=== PATIENT | male | born 1990 | race Caucasian/White ===

== ENCOUNTER 2019-06-20 13:58 | Emergency (ER) | payer OTHER ==
[2019-06-20 14:10] VITALS: BP 131/85; PULSE 68; TEMP 98.5; BMI 25.7
--- NOTE | 2019-06-20 14:15 | PDOC ---
Rapid Medical Evaluation Chief Complaint: Lightheaded Time Seen by Provider: 06/20/19 14:13 Medical Evaluation: Allergies Allergy/AdvReac Type Severity Reaction Status Date / Time No Known Allergies Allergy Verified 06/20/19 14:10 Vital Signs Temp Pulse Resp BP Pulse Ox 98.5 F 68 18 131/85 98 06/20/19 14:07 06/20/19 14:07 06/20/19 14:07 06/20/19 14:07 06/20/19 14:07 06/20/19 14:13 This is a 28-year-old male with a stated history of anxiety presenting with three days of worsening anxiety, subjective weakness, lightheadedness, and blood in stool. Alert, oriented, no distress. No abdominal tenderness. I have ordered the following: basic labs. Patient to proceed to the ED for further evaluation. Discharge Disposition - Diagnosis Lightheaded - Discharge Dispostion Condition at time of disposition: Stable - Referrals - Patient Instructions - Post Discharge Activity
[2019-06-20 14:57] LABS: BASO % 0.3 % (0-2.0); EOS % 0.1 % (0-4.5); HEMATOCRIT 46.4 % (35.4-49); HEMOGLOBIN 16.1 GM/dL (11.7-16.9); LYMPH % 11.7 % (8-40); MCH 30.5 pg (25.7-33.7); MCHC 34.7 g/dl (32.0-35.9); MEAN CELL VOLUME 87.9 fl (80-96); MEAN PLT VOLUME 8.4 fl (7.5-11.1); MONO % 5.7 % (3.8-10.2); NEUT % 82.2 % (42.8-82.8); PLATELET COUNT 192 K/MM3 (134-434); RBC 5.28 M/mm3 (4.00-5.60); RDW 13.4 % (11.9-15.9); WHITE BLOOD COUNT 10.7 K/mm3 (4.0-10.0)
[2019-06-20] MEDS ORDERED: SODIUM CHLORIDE 1,000 ML IV STA (15:00)
[2019-06-20 15:02] LABS: URINE APPEARANCE CLEAR; URINE BILIRUBIN NEGATIVE (NEGATIVE); URINE COLOR YELLOW; URINE GLUCOSE (UA) NEGATIVE (NEGATIVE); URINE KETONE NEGATIVE (NEGATIVE); URINE LEUK ESTERASE NEGATIVE (NEGATIVE); URINE NITRITE NEGATIVE (NEGATIVE); URINE PROTEIN NEGATIVE (NEGATIVE); URINE UROBILINOGEN 0.2 mg/dL (0.2-1.0)
[2019-06-20 15:22] LABS: ALBUMIN 4.2 g/dl (3.4-5.0); BILIRUBIN,TOTAL 0.6 mg/dL (0.2-1); BLOOD UREA NITROGEN 12.8 mg/dL (7-18); CALCIUM 9.2 mg/dL (8.5-10.1); CREATININE 0.9 mg/dL (0.55-1.3); TOT PROT 7.2 g/dl (6.4-8.2)
--- NOTE | 2019-06-20 15:22 | PDOC ---
History of Present Illness - General Chief Complaint: Lightheaded Stated Complaint: WEAKNESS/dizziness Time Seen by Provider: 06/20/19 14:13 History Source: Patient Exam Limitations: Clinical Condition - History of Present Illness Initial Comments: 06/20/19 15:17 Patient with no medical history of anxiety not on meds present with complaint of dizziness, lightheadedness, nausea since yesterday which is worsening today. Patient also reported having blood and tissue after having bowel movement. Denies active rectal bleeding. Denies chest pain, vomiting, headache, reported intermittent history of constipation. Denies any other symptoms. Denies sick contacts or recent travel Is this a multiple visit Asthma Patient?: No Timing/Duration: 24 hours Past History - Past Medical History Allergies/Adverse Reactions: Allergies Allergy/AdvReac Type Severity Reaction Status Date / Time No Known Allergies Allergy Verified 06/20/19 14:10 Home Medications: Ambulatory Orders hydrOXYzine PAMOATE [Vistaril -] 25 mg PO Q8H PRN #12 capsule 06/20/19 COPD: No - Immunization History Immunization Up to Date: No - Psycho Social/Smoking Cessation Hx Smoking History: Never smoked Have you smoked in the past 12 months: No Information on smoking cessation initiated: No Hx Alcohol Use: No Drug/Substance Use Hx: No Review of Systems - Review of Systems Able to Perform ROS?: Yes Is the patient limited [place]ish proficient: No Constitutional: No: Diaphoresis, Fever, Malaise HEENTM: Yes: Symptoms Reported, See HPI, Blurred Vision, Recent change in vision. No: Eye Pain, Tearing, Double Vision, Cataracts, Ear Pain, Ocular Prothesis, Ear Discharge, Nose Pain, Nose Congestion, Tinnitus, Nose Bleeding, Hearing Loss, Throat Pain, Throat Swelling, Mouth Pain, Dental Problems, Difficulty Swallowing, Mouth Swelling, Other Respiratory: No: Symptoms reported, See HPI, Cough, Orthopnea, Shortness of Breath, SOB with Exertion, SOB at Rest, Stridor, Wheezing, Productive cough, Hemoptysis, Other Cardiac (ROS): Yes: Symptoms Reported, See HPI, Lightheadedness. No: Chest Pain , Edema, Irregular Heart Rate, Palpitations, Syncope, Chest Tightness, Other ABD/GI: Yes: Symptoms Reported, See HPI, Constipated, Rectal Bleeding. No: Abd. Pain w/ defecation, Blood Streaked Bowels, Diarrhea, Difficulty Swallowing , Nausea, Poor Appetite, Vomiting, Indigestion, Abdominal cramping : No: Burning, Discharge, Frequency, Urgency Musculoskeletal: No: Symptoms Reported Neurological: No: Headache, Paresthesia, Seizure, Weakness, Unsteady Gait, Ataxia, Dizziness All Other Systems: Reviewed and Negative *Physical Exam - Vital Signs Last Vital Signs Temp Pulse Resp BP Pulse Ox 98.5 F 68 18 131/85 98 06/20/19 14:07 06/20/19 14:07 06/20/19 14:07 06/20/19 14:07 06/20/19 14:07 - Physical Exam Comments: 06/20/19 15:22 GENERAL: Well developed, well nourished. Awake and alert. No acute distress. HEENT: Normocephalic, atraumatic. PERRLA, EOMI. No conjunctival pallor. Sclera are non- icteric. Moist mucous membranes. Oropharynx is clear. NECK: Supple. Full ROM. No JVD. Carotid pulses 2+ and symmetric, without bruits. No thyromegaly. No lymphadenopathy. CARDIOVASCULAR: Regular rate and rhythm. No murmurs, rubs, or gallops. Distal pulses are 2+ and symmetric. PULMONARY: No evidence of respiratory distress. Lungs clear to auscultation bilaterally. No wheezing, rales or rhonchi. ABDOMINAL: Soft. Non-tender. Non-distended. No rebound or guarding. No organomegaly. Normoactive bowel sounds. MUSCULOSKELETAL Normal range of motion at all joints. EXTREMITIES: No cyanosis. No clubbing. No edema. SKIN: Warm and dry. Normal capillary refill. No rashes. No jaundice. NEUROLOGICAL: Alert, awake, appropriate. Cranial nerves 2-12 intact. No motor deficits in the in face, upper extremities and lower extremities. Normal speech. Toes are down-going bilaterally. Gait is normal without ataxia. PSYCHIATRIC: Cooperative. Good eye contact. Appropriate mood and affect. General Appearance: Yes: Nourished, Appropriately Dressed. No: Apparent Distress ED Treatment Course - LABORATORY CBC & Chemistry Diagram: 06/20/19 14:38 06/20/19 14:38 - ADDITIONAL ORDERS Additional order review: Laboratory Results 06/20/19 14:38 Urine Color Yellow Urine Appearance Clear Urine pH 7.0 Ur Specific [place] 1.006 L Urine Protein Negative Urine Glucose (UA) Negative Urine Ketones Negative Urine Blood Negative Urine Nitrite Negative Urine Bilirubin Negative Urine Urobilinogen 0.2 Ur Leukocyte Esterase Negative 06/20/19 14:38 RBC 5.28 MCV 87.9 MCHC 34.7 RDW 13.4 MPV 8.4 Neutrophils % 82.2 Lymphocytes % 11.7 Monocytes % 5.7 Eosinophils % 0.1 Basophils % 0.3 Medical Decision Making - Medical Decision Making 06/20/19 15:19 Patient with no medical history of anxiety not on meds present with complaint of dizziness, lightheadedness, nausea since yesterday which is worsening today. Patient also reported having blood and tissue after having bowel movement. Denies active rectal bleeding. Denies chest pain, vomiting, headache, reported intermittent history of constipation. Denies any other symptoms. Denies sick contacts or recent travel Clinical exam unremarkable with normal neuro exam. patient reported starting to feel better after drinking Gatorade. Symptoms likely dehydration versus anxiety versus less likely cardiogenic symptoms. EKG, CBC, CMP, PT/PTT labs ordered. IV hydration with normal saline 1 L ordered. occult stool sample sent to r/o rectal bleed. Treat based on lab results 06/20/19 15:45 EKG shows normal sinus rhythm. CBC CMP PT and PTT lab unremarkable urine toxicology shows positive marijuana with patient admits has been smoking marijuana. Patient is symptomatic now. Symptoms likely dehydration and anxiety. Patient is stable for discharge with Vistaril when necessary for anxiety with advised to increase fluid intake and follow up with PCP Discharge - Discharge Information Problems reviewed: Yes Clinical Impression/Diagnosis: Lightheaded, Anxiety, Dehydration Condition: Stable Disposition: HOME - Admission No - Additional Discharge Information Prescriptions: hydrOXYzine PAMOATE [Vistaril -] 25 mg PO Q8H PRN #12 capsule PRN Reason: Anxiety - Follow up/Referral Referrals: Earl Bhat MD [Primary Care Provider] - - Patient Discharge Instructions Patient Printed Discharge Instructions: Anxiety Disorders, DI for Dehydration - - Adult Additional Instructions: Your labs are normal . Your rectal exam is normal and does not show rectal bleed. Your symptoms is likely caused by dehydration and anxiety. Take prescribed medication as needed for anxiety. Increase fluid intake. Follow-up with your PCP - Post Discharge Activity Work/Back to School Note: Back to Work
[2019-06-20 15:23] LABS: COCAINE, UR NEGATIVE ng/ml (CUTOFF=300); INR 1.08 (0.83-1.09); METHADONE, UR NEGATIVE ng/ml (CUTOFF=300); OPIATES, URI NEGATIVE ng/ml (CUTOFF=300); PHENCYCLIDINE,URINE NEGATIVE ng/ml (CUTOFF=25); PROTHROMBIN TIME (PATIENT) 12.7 SEC (9.7-13.0); URINE AMPHETAMINES NEGATIVE ng/ml (CUTOFF=500); URINE BARBITURATES NEGATIVE ng/ml (CUTOFF=200); URINE BENZODIAZEPINES NEGATIVE ng/ml (CUTOFF=200)
[2019-06-20 15:26] LABS: ACTIVATED PTT 34.5 SECONDS (25.2-36.5)
--- NOTE | 2019-06-22 16:57 | EKG ---
Test Reason : Blood Pressure : / mmHG Vent. Rate : 052 BPM Atrial Rate : 052 BPM P-R Int : 124 ms QRS Dur : 086 ms QT Int : 390 ms P-R-T Axes : 033 067 046 degrees QTc Int : 362 ms SINUS BRADYCARDIA EARLY REPOLARIZATION OTHERWISE NORMAL ECG NO PREVIOUS ECGS AVAILABLE Confirmed by FLORA AL MD ([id number]) on 06/22/2019 4:56:50 PM Referred By: Confirmed By:FLORA AL MD
== END 2019-06-20 15:06 | disposition home or self-care (01) ==
LOC: JER 13:58
PROC: 3E0337Z Introduction of Electrolytic and Water Balance Substance into Peripheral Vein, Percutaneous Approach (ICD-10-PCS; principal; 2019-06-20)
DX: E86.0 Dehydration (principal); F41.9 Anxiety disorder, unspecified; R42 Dizziness and giddiness
CPT/HCPCS: 36415; 80053; 80307; 81003; 82272; 85025; 85610; 85730; 93005; 93010; 96360; 99282-25; J7030

== ENCOUNTER 2019-06-22 14:43 | Emergency (ER) | payer OTHER ==
[2019-06-22 14:50] VITALS: BP 142/70; PULSE 61; TEMP 97.6; BMI 25.7
[2019-06-22] MEDS ORDERED: hydrOXYzine PAMOATE 25 MG CAPSULE (FP) PO ONE (16:17)
[2019-06-22] MEDS ORDERED: SODIUM CHLORIDE 1,000 ML IV STA (16:17)
--- NOTE | 2019-06-22 16:18 | PDOC ---
History of Present Illness - General Chief Complaint: Weakness Stated Complaint: WEAK Time Seen by Provider: 06/22/19 15:38 History Source: Patient Exam Limitations: No Limitations Past History - Travel Traveled outside of the country in the last 30 days: No Close contact w/someone who was outside of country & ill: No - Past Medical History Allergies/Adverse Reactions: Allergies Allergy/AdvReac Type Severity Reaction Status Date / Time No Known Allergies Allergy Verified 06/22/19 14:49 Home Medications: Ambulatory Orders hydrOXYzine PAMOATE [Vistaril -] 25 mg PO Q8H PRN #12 capsule 06/20/19 COPD: No - Immunization History Immunization Up to Date: No - Psycho Social/Smoking Cessation Hx Smoking History: Current every day smoker Have you smoked in the past 12 months: No Information on smoking cessation initiated: No Hx Alcohol Use: No Drug/Substance Use Hx: No Review of Systems - Review of Systems Able to Perform ROS?: Yes Comments:: 06/22/19 17:45 CONSTITUTIONAL: Absent: fever, chills, diaphoresis, generalized weakness, malaise, loss of appetite HEENT: Absent: rhinorrhea, nasal congestion, throat pain, throat swelling, difficulty swallowing, mouth swelling, ear pain, eye pain, visual Changes CARDIOVASCULAR: Absent: chest pain, loss of consciousness, palpitations, irregular heart rate, peripheral edema RESPIRATORY: Absent: cough, shortness of breath, dyspnea with exertion, orthopnea, wheezing, stridor, hemoptysis GASTROINTESTINAL: Absent: abdominal pain, abdominal distension, nausea, vomiting, diarrhea, constipation, melena, hematochezia GENITOURINARY: Absent: dysuria, frequency, urgency, hesitancy, hematuria, flank pain, genital pain MUSCULOSKELETAL: Absent: myalgia, arthralgia, joint swelling SKIN: Absent: rash, itching, pallor HEMATOLOGIC/IMMUNOLOGIC: Absent: easy bleeding, easy bruising, lymphadenopathy, frequent infections ENDOCRINE: Absent: unexplained weight gain, unexplained weight loss, heat intolerance, cold intolerance NEUROLOGIC: Present: numbness and tingling to both feet Absent: headache, focal weakness or paresthesias, dizziness, unsteady gait, seizure, mental status changes, bladder or bowel incontinence PSYCHIATRIC: Absent: anxiety, depression, suicidal or homicidal ideation, hallucinations. Is the patient limited [place] proficient: No *Physical Exam - Vital Signs Last Vital Signs Temp Pulse Resp BP Pulse Ox 97.6 F 61 18 142/70 99 06/22/19 14:47 06/22/19 14:47 06/22/19 14:47 06/22/19 14:47 06/22/19 14:47 - Physical Exam Comments: 06/22/19 17:46 GENERAL: Well developed, well nourished. Awake and alert. No acute distress. HEENT: Normocephalic, atraumatic. PERRLA, EOMI. No conjunctival pallor. Sclera are non- icteric. Moist mucous membranes. Oropharynx is clear. NECK: Supple. Full ROM. No JVD. Carotid pulses 2+ and symmetric, without bruits. No thyromegaly. No lymphadenopathy. CARDIOVASCULAR: Regular rate and rhythm. No murmurs, rubs, or gallops. Distal pulses are 2+ and symmetric. PULMONARY: No evidence of respiratory distress. Lungs clear to auscultation bilaterally. No wheezing, rales or rhonchi. ABDOMINAL: Soft. Non-tender. Non-distended. No rebound or guarding. No organomegaly. Normoactive bowel sounds. MUSCULOSKELETAL Normal range of motion at all joints. No bony deformities or tenderness. No CVA tenderness. EXTREMITIES: No cyanosis. No clubbing. No edema. No calf tenderness. SKIN: Warm and dry. Normal capillary refill. No rashes. No jaundice. NEUROLOGICAL: Alert, awake, appropriate. Cranial nerves 2-12 intact. No deficits to light touch and temperature in face, upper extremities and lower extremities. No motor deficits in the in face, upper extremities and lower extremities. Normoreflexic in the upper and lower extremities. Normal speech. Toes are down- going bilaterally. Gait is normal without ataxia. PSYCHIATRIC: Cooperative. Good eye contact. Appropriate mood and affect. ED Treatment Course - LABORATORY CBC & Chemistry Diagram: 06/22/19 16:30 06/22/19 16:30 Medical Decision Making - Medical Decision Making 06/22/19 17:47 The patient is a 28 y/o M with H anxiety, substance abuse, presents to the ER for weakness and numbness to both of his feet. He was seen two days ago and had an essentially negative work up today. He reports that he did not roller picker the anxiety medication that was prescribed to him as he was afraid of getting addicted. Denies fevers, recent illness, chills, n/v/d, visual changes, and lightheadedness. A/P: anxiety On exam pt is neurologically intact with no focal findings Unlikely MS as the numbness is affecting both feet. Redrew labs; no significant change in two days Pt reports relief of symptoms after fluids and Vistiril Likely anxiety DC home with instructions how to take the Visteril. Explained that it is not addicting Advised to stop smoking his vape pen. I discussed the physical exam findings, ancillary test results and final diagnoses with the patient. I answered all of the patient's questions. The patient was satisfied with the care received and felt comfortable with the discharge plan and treatment plan. The Patient agrees to follow up with the primary care physician/specialist within 24-72 hours. Return precautions were given. 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
[2019-06-22 16:43] LABS: BASO % 0.3 % (0-2.0); EOS % 0.1 % (0-4.5); HEMATOCRIT 48.2 % (35.4-49); HEMOGLOBIN 16.4 GM/dL (11.7-16.9); LYMPH % 12.1 % (8-40); MCH 30.1 pg (25.7-33.7); MCHC 34.1 g/dl (32.0-35.9); MEAN CELL VOLUME 88.1 fl (80-96); MEAN PLT VOLUME 8.6 fl (7.5-11.1); MONO % 5.6 % (3.8-10.2); NEUT % 81.9 % (42.8-82.8); PLATELET COUNT 196 K/MM3 (134-434); RBC 5.47 M/mm3 (4.00-5.60); RDW 13.1 % (11.9-15.9); WHITE BLOOD COUNT 11.3 K/mm3 (4.0-10.0)
[2019-06-22 17:10] LABS: ALBUMIN 4.5 g/dl (3.4-5.0); BILIRUBIN,TOTAL 0.8 mg/dL (0.2-1); BLOOD UREA NITROGEN 11.9 mg/dL (7-18); CALCIUM 9.1 mg/dL (8.5-10.1); CREATININE 0.9 mg/dL (0.55-1.3); POTASSIUM 3.9 mmol/L (3.5-5.1); TOT PROT 7.6 g/dl (6.4-8.2)
== END 2019-06-22 17:49 | disposition home or self-care (01) ==
LOC: JER 14:43 → JERFT 14:43
DX: F41.9 Anxiety disorder, unspecified (principal)
CPT/HCPCS: 36415; 80053; 85025; 99282-25; J7030